=== PATIENT | male | born 1990 | race Asian ===

== ENCOUNTER 2021-03-28 16:52 | Emergency (ER) | payer OTHER ==
[~2021-03-28] VITALS: Ht 170.2 cm; Wt 77.5 kg
[2021-03-28 20:24] VITALS: BP 119/63
== END 2021-03-28 20:26 | disposition home or self-care (01) ==
LOC: M ED 16:52
DX: S93.402A Sprain of unspecified ligament of left ankle, initial encounter (principal); W00.0XXA Fall on same level due to ice and snow, initial encounter; Y92.89 Other specified places as the place of occurrence of the external cause; F17.210 Nicotine dependence, cigarettes, uncomplicated